=== PATIENT | female | born 1995 | race African-American/Black ===

== ENCOUNTER 2018-08-01 19:51 | Emergency (ER) | payer MEDICAID ==
[~2018-08-01] VITALS: Ht 162.6 cm; Wt 45.4 kg
[2018-08-01 20:30] VITALS: BP 123/75
[2018-08-01] MEDS ORDERED: Isovue-300 100ml vial INJ PRN (20:30)
--- NOTE | 2018-08-01 20:30 | NUR ---
ED Nurse Note: Patient walked in with steady gait from home c/o abdominal pain, N/V/D since this morning. AAO x4, VSS at this time, skin is dry, intact, warm to touch. Will continue to monitor.
--- NOTE | 2018-08-01 20:31 | Emergency Room Report ---
History of Present Illness General Chief Complaint: Nausea, Vomiting, and Diarrhea Source: Patient Present Illness HPI Patient presents with reports of increased diffuse abdominal pain vomiting and diarrhea Patient's boyfriend reports that the patient was at a constitution party last night earlier today started having increased diffuse discomfort Patient herself is in discomfort and most of the history is obtained from the boyfriend Denies any blood in the vomit Patient initially started vomiting and then had several episodes of diarrhea Allergies: Coded Allergies: No Known Allergies (Unverified , 08/01/18) Patient History Past Medical History: see triage record Pertinent Family History: none Last Menstrual Period: 07/21/2017 Now: No Reviewed Nursing Documentation: PMH: Agreed; PSxH: Agreed Nursing Documentation-PMH Past Medical History: No History, Except For Hx Gastrointestinal Problems: Yes - 2013 Review of Systems All Other Systems: negative except mentioned in HPI Physical Exam Vital Signs Date Time Temp Pulse Resp B/P (MAP) Pulse Ox O2 Delivery O2 Flow Rate FiO2 08/01/18 20:14 98.8 76 16 123/75 98 Room Air Sp02 EP Interpretation: reviewed, normal General Appearance: mild distress - In acute pain Head: normocephalic, atraumatic Eyes: bilateral eye PERRL, bilateral eye EOMI ENT: hearing grossly normal, normal pharynx Neck: supple Respiratory: lungs clear, no retraction, no accessory muscle use Cardiovascular #1: regular rate, rhythm Gastrointestinal: non tender - On palpation however subjectively points diffusely throughout the abdominal region, soft Musculoskeletal: normal inspection Neurologic: alert, oriented x3 Psychiatric: normal inspection Skin: normal color, no rash Lymphatic: no adenopathy Medical Decision Making ER Course With the patient's history and examination, multiple differentials considered, including but not limited to , ectopic , ovarian torsion, gastritis, cholecystitis, pancreatitis, appendicitis Last Vital Signs Date Time Temp Pulse Resp B/P (MAP) Pulse Ox O2 Delivery O2 Flow Rate FiO2 08/01/18 20:14 98.8 76 16 123/75 98 Room Air Scripts No Active Prescriptions or Reported Meds Paul Elizabeth DO Aug 01, 2018 20:31
[2018-08-01 21:46] LABS: ANION GAP 14 mmol/L (5-15); BLOOD UREA NITROGEN 13 mg/dL (7-18); CALCIUM 10.3 MG/DL (8.5-10.1); CARBON DIOXIDE 25 MMOL/L (21-32); CHLORIDE 100 MMOL/L (98-107); CREATININE 0.7 MG/DL (0.55-1.30); POTASSIUM 4.5 MMOL/L (3.5-5.1); SODIUM 139 MMOL/L (136-145)
[2018-08-01 21:51] LABS: HEMATOCRIT 41.4 % (37.0-47.0); HEMOGLOBIN 13.5 G/DL (12.0-16.0); MEAN CORPUSCULAR VOLUME 85 FL (80-99); PLATELET COUNT 293 K/UL (150-450); RED BLOOD COUNT 4.89 M/UL (4.20-5.40); RED CELL DISTRIBUTION WIDTH 13.8 % (11.6-14.8); WHITE BLOOD COUNT 14.3 K/UL (4.8-10.8)
[2018-08-01 21:52] LABS: ALANINE AMINOTRANSFERASE 37 U/L (12-78); ALBUMIN 4.4 G/DL (3.4-5.0); ALKALINE PHOSPHATASE 70 U/L (46-116); ASPARTATE AMINO TRANSFERASE 44 U/L (15-37); BILIRUBIN,TOTAL 0.5 MG/DL (0.2-1.0)
[2018-08-01 22:40] VITALS: BP 123/75
[2018-08-01 23:08] LABS: APPEARANCE,URINE CLEAR; BILIRUBIN, URINE NEGATIVE (NEGATIVE); COLOR,URINE PALE YELLOW; GLUCOSE, URINE (UA) NEGATIVE (NEGATIVE); KETONES,URINE 2+ (NEGATIVE); LEUKOCYTE ESTERASE ,URINE 2+ (NEGATIVE); NITRITE,URINE NEGATIVE (NEGATIVE); PH,URINE 5 (4.5-8.0); PROTEIN,URINE 2+ (NEGATIVE); UROBILINOGEN,URINE NORMAL MG/DL (0.0-1.0)
--- NOTE | 2018-08-01 23:10 | NUR ---
ED Nurse Note: Patient was medicated feel better. AAO x4, VSS at this time.
[2018-08-01] MEDS ORDERED: Lidocaine 2% Visc 15ml soln ORAL ONE (23:15)
[2018-08-01] MEDS ORDERED: Dicyclomine HCl 10mg/5ml oral soln ORAL ONE (23:15)
[2018-08-02 00:14] VITALS: BP 125/80
[2018-08-02] MEDS ORDERED: Morphine Sulfate 2mg/ml Inj(IV/IM USE ONLY) IVP ONE (00:30)
[2018-08-02] MEDS ORDERED: Haloperidol Lactate 5 MG in D5W 55 ML IVPB ONE (00:30)
[2018-08-02] MEDS ORDERED: DICYCLOMINE HCL10 MG PO (01:57)
[2018-08-02] MEDS ORDERED: ZOFRAN4 M3 ORAL (01:57)
[2018-08-02 02:10] VITALS: BP 125/80
--- NOTE | 2018-08-02 02:10 | NUR ---
ER DISCHARGE NOTE: Patient is cleared to be discharged per ERMD, pt is aox4, on room air, with stable vital signs. pt was given dc and prescription instructions, pt was able to verbalize understanding, pt id band and iv site removed without complications. pt is able to ambulate with steady gait. pt took all belongings.
--- NOTE | 2018-08-02 02:15 | NUR ---
ED Nurse Note: Patient left black small bag behind the bed. Gave to security, with label on it.
--- NOTE | 2018-08-02 09:36 | Diagnostic Imaging Report ---
Indication: Abdominal pain Technique: CT of the abdomen and pelvis utilizing automated exposure control with intravenous contrast. Venous scanning performed. Axial, sagittal and coronal reformats presented. CT dose: Total DLP 401.6 mGycm; CTDI vol 8.9 mGy Comparison: None Findings: Imaged lung bases are clear. Heart size within normal limits. No pericardial effusion. The liver is normal in size and contour. No focal hepatic mass lesion is appreciated on this single phase exam. The hepatic veins and portal veins appear patent. Gallbladder is unremarkable. No biliary ductal dilatation. Spleen, adrenal glands and pancreas unremarkable. No appreciable peripancreatic inflammatory changes. Pancreas enhancement appears uniform. Imaging was performed in the urographic phase. Kidneys enhance symmetrically. No perinephric stranding or hydronephrosis is seen. Apparent mild thickening of the bladder wall likely related to relative underdistention. Correlation with urinalysis recommended. No definite pericystic inflammatory changes. Approximately 1.2 cm low-attenuation well-circumscribed structure is noted in the left adnexa which most likely represents a small physiologic cyst. The uterus is retroverted. Evaluation of the gastrointestinal structures is limited due to lack of enteric contrast and overall paucity of intra-abdominal fat. There is no free intraperitoneal air or fluid. There is no evidence of bowel obstruction or definite focal inflammatory changes in the mesentery. The appendix is not definitively identified however there are no definite pericecal inflammatory changes. No pathologically enlarged lymphadenopathy. Abdominal aorta is normal in caliber. No acute osseous abnormality. IMPRESSION: * Apparent mild thickening of the urinary bladder possibly related to underdistention. Correlation with urinalysis recommended to exclude cystitis. * No evidence of bowel obstruction. Appendix not definitively identified however there is no focal inflammatory stranding in the right lower quadrant. The CT scanner at [facility] is accredited by the [employer] and the scans are performed using protocols designed to limit radiation exposure to as low as reasonably achievable to attain images of sufficient resolution adequate for diagnostic evaluation.
== END 2018-08-02 02:05 | disposition home or self-care (01) ==
LOC: EMR 20:40
DX: R10.9 Unspecified abdominal pain (principal); R11.10 Vomiting, unspecified; R19.7 Diarrhea, unspecified
CPT/HCPCS: 36415; 74177; 80053; 80307; 81003; 81025; 83690; 85007; 85025; 96361; 96374; 96375; 99284; J1630; J2270; J2405; Q9967

== ENCOUNTER 2018-08-07 14:32 | Emergency (ER) | payer MEDICAID ==
[~2018-08-07] VITALS: Ht 162.6 cm; Wt 43.1 kg
[~2018-08-07 14:32] MED LIST: DICYCLOMINE HCL10 MG PO; ZOFRAN4 M3 ORAL
[2018-08-07] MEDS ORDERED: NKM (14:44)
[2018-08-07 14:48] VITALS: BP 128/86
[2018-08-07] MEDS ORDERED: Morphine Sulfate 4mg/ml Inj (IV USE ONLY) IVP ONE (16:00)
[2018-08-07 16:34] LABS: ANION GAP 12 mmol/L (5-15); BLOOD UREA NITROGEN 16 mg/dL (7-18); CALCIUM 9.8 MG/DL (8.5-10.1); CARBON DIOXIDE 29 MMOL/L (21-32); CHLORIDE 92 MMOL/L (98-107); CREATININE 0.8 MG/DL (0.55-1.30); POTASSIUM 3.6 MMOL/L (3.5-5.1); SODIUM 133 MMOL/L (136-145)
[2018-08-07 16:36] LABS: BASOPHILS % (AUTO) 1.1 % (0.0-2.0); HEMATOCRIT 43.4 % (37.0-47.0); HEMOGLOBIN 14.4 G/DL (12.0-16.0); LYMPHOCYTES % (AUTO) 28.7 % (20.0-45.0); MEAN CORPUSCULAR VOLUME 84 FL (80-99); MONOCYTES % (AUTO) 11.4 % (1.0-10.0); NEUTROPHILS % (AUTO) 58.8 % (45.0-75.0); PLATELET COUNT 326 K/UL (150-450); RED CELL DISTRIBUTION WIDTH 13.6 % (11.6-14.8); WHITE BLOOD COUNT 4.8 K/UL (4.8-10.8)
[2018-08-07 16:44] LABS: ALANINE AMINOTRANSFERASE 23 U/L (12-78); ALBUMIN 4.3 G/DL (3.4-5.0); ALBUMIN/GLOBULIN RATIO 1.1 (1.0-2.7); ALKALINE PHOSPHATASE 71 U/L (46-116); ASPARTATE AMINO TRANSFERASE 27 U/L (15-37); BILIRUBIN,TOTAL 1.5 MG/DL (0.2-1.0)
[2018-08-07 16:46] LABS: BILIRUBIN,DIRECT 0.2 MG/DL (0.0-0.3)
--- NOTE | 2018-08-07 17:26 | Emergency Room Report ---
History of Present Illness General Chief Complaint: Abdominal Pain Source: Medical Record Present Illness HPI 22 YO Female presents to the ED c/o persistent N/V and abdominal pain. Pt. denies fevers or chills, denies , denies recent travel or ill contacts. pt. reports some loose stool. Denies blood in the vomit or stool. denies black tarry stools. reports THC use. Pt. denies dizziness, syncope, fatigue. Denies dysuria, hematuria or urinary frequency. Allergies: Coded Allergies: No Known Allergies (Unverified , 08/01/18) Patient History Past Medical History: see triage record Past Surgical History: none Pertinent Family History: none Last Menstrual Period: 07/20/18 Reviewed Nursing Documentation: PMH: Agreed; PSxH: Agreed Nursing Documentation-PMH Past Medical History: No History, Except For Hx Gastrointestinal Problems: Yes - 2013 Review of Systems All Other Systems: negative except mentioned in HPI Physical Exam Vital Signs Date Time Temp Pulse Resp B/P (MAP) Pulse Ox O2 Delivery O2 Flow Rate FiO2 08/07/18 14:43 99.0 100 18 128/86 97 Room Air Sp02 EP Interpretation: reviewed, normal General Appearance: no apparent distress, alert, GCS 15, non-toxic Head: normocephalic, atraumatic Eyes: bilateral eye normal inspection, bilateral eye PERRL ENT: hearing grossly normal, normal voice Neck: full range of motion Respiratory: lungs clear, normal breath sounds, speaking full sentences Cardiovascular #1: regular rate, rhythm Gastrointestinal: normal bowel sounds, non tender, soft, non-distended, no guarding Genitourinary: no CVA tenderness Musculoskeletal: back normal, gait/station normal, normal range of motion, non- tender Neurologic: alert, oriented x3, responsive, motor strength/tone normal, sensory intact, speech normal, grossly normal Psychiatric: judgement/insight normal Skin: normal color, no rash, warm/dry, well hydrated Medical Decision Making PA Attestation Dr. Nelson is my supervising Physician whom patient management has been discussed with. Diagnostic Impression: Primary Impression: Abdominal pain Qualified Codes: R10.84 - Generalized abdominal pain Additional Impression: UTI (urinary tract infection) Qualified Codes: N30.01 - Acute cystitis with hematuria ER Course 22 YO Female presents to the ED c/o persistent N/V and abdominal pain. Pt. denies fevers or chills, denies , denies recent travel or ill contacts. pt. reports some loose stool. Denies blood in the vomit or stool. denies black tarry stools. reports THC use. Pt. denies dizziness, syncope, fatigue. Denies dysuria, hematuria or urinary frequency. Ddx considered but are not limited to Diverticulitis, acute appendicitis, diarrhea,UC, PUD, GE, pancreatitis, gallstone, UTI, cannabinoid induced vomiting syndrome, just to name a few. Vital signs: are WNL, pt. is afebrile H&PE are most consistent with persistent Vomiting/ abdominal pain , mild dehydration. ORDERS: -CBC, CMP, lipase: Unremarkable UA: positive for UTI ED INTERVENTIONS: -- 1000NS IV - Zofran 4mg. -Morphine 4mg IV - Lidoderm patch -Capsaicin Cream TP - Rocephin IM 250mg DISCHARGE: At this time pt. is stable for d/c to home. Will provide printed patient care instructions, and any necessary prescriptions. Care plan and follow up instructions have been discussed with the patient prior to discharge. Labs Test 08/07/18 16:10 08/07/18 18:22 White Blood Count 4.8 K/UL (4.8-10.8) Red Blood Count 5.20 M/UL (4.20-5.40) Hemoglobin 14.4 G/DL (12.0-16.0) Hematocrit 43.4 % (37.0-47.0) Mean Corpuscular Volume 84 FL (80-99) Mean Corpuscular Hemoglobin 27.7 PG (27.0-31.0) Mean Corpuscular Hemoglobin Concent 33.1 G/DL (32.0-36.0) Red Cell Distribution Width 13.6 % (11.6-14.8) Platelet Count 326 K/UL (150-450) Mean Platelet Volume 6.2 FL (6.5-10.1) Neutrophils (%) (Auto) 58.8 % (45.0-75.0) Lymphocytes (%) (Auto) 28.7 % (20.0-45.0) Monocytes (%) (Auto) 11.4 % (1.0-10.0) Eosinophils (%) (Auto) 0.0 % (0.0-3.0) Basophils (%) (Auto) 1.1 % (0.0-2.0) Sodium Level 133 MMOL/L (136-145) Potassium Level 3.6 MMOL/L (3.5-5.1) Chloride Level 92 MMOL/L (98-107) Carbon Dioxide Level 29 MMOL/L (21-32) Anion Gap 12 mmol/L (5-15) Blood Urea Nitrogen 16 mg/dL (7-18) Creatinine 0.8 MG/DL (0.55-1.30) Estimat Glomerular Filtration Rate > 60 mL/min (>60) Glucose Level 63 MG/DL (74-106) Calcium Level 9.8 MG/DL (8.5-10.1) Total Bilirubin 1.5 MG/DL (0.2-1.0) Direct Bilirubin 0.2 MG/DL (0.0-0.3) Aspartate Amino Transf (AST/SGOT) 27 U/L (15-37) Alanine Aminotransferase (ALT/SGPT) 23 U/L (12-78) Alkaline Phosphatase 71 U/L (46-116) Total Protein 8.3 G/DL (6.4-8.2) Albumin 4.3 G/DL (3.4-5.0) Globulin 4.0 g/dL Albumin/Globulin Ratio 1.1 (1.0-2.7) Lipase 68 U/L (73-393) Human Chorionic Gonadotropin, Qual Negative (NEGATIVE) Urine Color Nina Urine Appearance Slightly cloudy Urine pH 6 (4.5-8.0) Urine Specific [place] 1.015 (1.005-1.035) Urine Protein 1+ (NEGATIVE) Urine Glucose (UA) Negative (NEGATIVE) Urine Ketones 4+ (NEGATIVE) Urine Blood 2+ (NEGATIVE) Urine Nitrite Negative (NEGATIVE) Urine Bilirubin Negative (NEGATIVE) Urine Ictotest Negative (NEGATIVE) Urine Urobilinogen Normal MG/DL (0.0-1.0) Urine Leukocyte Esterase 3+ (NEGATIVE) Urine RBC 2-4 /HPF (0 - 2) Urine WBC 20-30 /HPF (0 - 2) Urine Squamous Epithelial Cells Many /LPF (NONE/OCC) Urine Bacteria Many /HPF (NONE) Urine Trichomonas Few /HPF (NONE) Urine Opiates Screen Positive (NEGATIVE) Urine Barbiturates Screen Negative (NEGATIVE) Phencyclidine (PCP) Screen Negative (NEGATIVE) Urine Amphetamines Screen Negative (NEGATIVE) Urine Benzodiazepines Screen Negative (NEGATIVE) Urine Cocaine Screen Negative (NEGATIVE) Urine Marijuana (THC) Screen Positive (NEGATIVE) Last Vital Signs Date Time Temp Pulse Resp B/P (MAP) Pulse Ox O2 Delivery O2 Flow Rate FiO2 08/07/18 16:43 99.0 08/07/18 14:48 100 18 Room Air 08/07/18 14:48 128/86 97 Disposition: HOME, SELF-CARE Condition: Stable Scripts Nitrofurantoin Monohyd/M-Cryst* (MACROBID 100 MG*) 100 Mg Capsule 100 MG ORAL EVERY 12 HOURS for 5 Days, #10 CAP Prov: Emily Pepe 08/07/18 Ondansetron Odt* (ZOFRAN ODT*) 4 Mg Tab.rapdis 4 MG BC EVERY 6 HOURS PRN for Nausea & Vomiting, #10 TAB 0 Refills Prov: Emily Pepe 08/07/18 Doxycycline Hyclate* (VIBRAMYCIN*) 100 Mg Capsule 100 MG ORAL EVERY 12 HOURS for 14 Days, #28 CAP 0 Refills Prov: Emily Pepe 08/07/18 Patient Instructions: Abdominal Pain, Adult, Pelvic Inflammatory Disease, Easy- to-Read Additional Instructions: Take medications as directed. Follow up with a [employer] [employer] [facility] and PCP within 3-5 days, even if your symptoms have resolved. Return sooner to ED if new symptoms occur, or current symptoms become worse. - Please note that this Emergency Department Report was dictated using [employer] technology software, occasionally this can lead to erroneous entry secondary to interpretation by the dictation equipment. Emily Pepe Aug 07, 2018 17:26
[2018-08-07] MEDS ORDERED: Ketorolac 30mg Inj IV ONE (18:15)
[2018-08-07 18:36] LABS: BILIRUBIN, URINE NEGATIVE (NEGATIVE); COLOR,URINE AMBER; GLUCOSE, URINE (UA) NEGATIVE (NEGATIVE); KETONES,URINE 4+ (NEGATIVE); LEUKOCYTE ESTERASE ,URINE 3+ (NEGATIVE); NITRITE,URINE NEGATIVE (NEGATIVE); PH,URINE 6 (4.5-8.0); PROTEIN,URINE 1+ (NEGATIVE); UROBILINOGEN,URINE NORMAL MG/DL (0.0-1.0)
[2018-08-07 18:45] LABS: APPEARANCE,URINE SLIGHTLY CLOUDY
[2018-08-07] MEDS ORDERED: Lidocaine 1% MPF 10mg/ml 5ml INJ ONE (19:15)
[2018-08-07] MEDS ORDERED: Capsaicin 0.075% Cream TOPIC SCH (19:30)
[2018-08-07] MEDS ORDERED: VIBRAMYCIN100 MG ORAL (19:31)
[2018-08-07] MEDS ORDERED: ONDANSETRON ODT4 MG BC (19:31)
[2018-08-07 20:25] VITALS: BP 128/86
[2018-08-07] MEDS ORDERED: Capsaicin 0.075% Cream TOPIC ONE (20:30)
[2018-08-07] MEDS ORDERED: NITROFURANTOIN100 M2 ORAL (20:43)
== END 2018-08-07 20:20 | disposition home or self-care (01) ==
LOC: EMR 17:30
DX: R10.84 Generalized abdominal pain (principal); N39.0 Urinary tract infection, site not specified
CPT/HCPCS: 36415; 80053; 80307; 81003; 82248; 83690; 84703; 85025; 87086; 87181; 96361; 96372; 96374; 96375; 99284; J0696; J1885; J2270